=== PATIENT | male | born 1990 | race Two or more races ===

== ENCOUNTER 2017-01-14 15:59 | Emergency (ER) | payer OTHER ==
[~2017-01-14] VITALS: Ht 162.6 cm; Wt 63.5 kg
--- NOTE | 2017-01-14 16:14 | NUR ---
AAOX3, BBLAPD: OK TO BOOK. LEFT SCROTAL/TESTICULAR PAIN AND SWELLING X 4 DAYS. SKIN IS WARM AND DRY. RESP IS EVEN AND UNLABORED WITH NAD NOTED. DR CHAVEZ AT BS FOR EVAL.
[2017-01-14 17:18] LABS: APPEARANCE,URINE CLEAR (CLEAR); BILIRUBIN,URINE 1+ (NEGATIVE); BLOOD, URINE NEGATIVE Ery/uL (NEGATIVE); COLOR,URINE DARK YELLO (YELLOW); KETONES,URINE TRACE (NEGATIVE); LEUKOCYTE ESTERASE ,URINE 1+ (NEGATIVE); NITRITE, URINE NEGATIVE (NEGATIVE); PROTEIN,URINE 1+ mg/dl (NEGATIVE); UGLUCOSE NEGATIVE (NEGATIVE)
[2017-01-14 17:25] LABS: BACTERIA,URINE Many /HPF (None Seen); RBC,URINE 0-2 /HPF (0-2); SQUAMOUS EPITHELIAL CELL,UR Few /HPF (None Seen)
[2017-01-14] MEDS ORDERED: CEFTRIAXONE 1 G VIAL IM ONE (17:30)
[2017-01-14] MEDS ORDERED: CEFTRIAXONE 500 MG VIAL ONE (17:42)
[2017-01-14] MEDS ORDERED: LIDOCAINE /MPF 1% VIAL 5 ML VIAL ONE (17:42)
--- NOTE | 2017-01-14 18:18 | NUR ---
Patient discharged to home in stable condition. Written and verbal after care instructions given. Patient verbalizes understanding of instruction.
[2017-01-14 18:20] VITALS: BP 115/68
[2017-01-16 05:12] LABS: *NEISSERIA GONORRHOEAE NAA Positive (Negative); CHLAMYDIA TRACHOMATIS NAA Negative (Negative)
== END 2017-01-14 18:22 ==
LOC: ER 16:05
DX: N45.3 Epididymo-orchitis (principal); G40.909 Epilepsy, unspecified, not intractable, without status epilepticus
CPT/HCPCS: 76870; 81001; 87086; 87491; 87591; 96372; 99284; A4606; J0696; J3490; Z7610; 81000-TC